=== PATIENT | female | born 1935 | race African-American/Black ===

== ENCOUNTER 2022-03-26 16:41 | Inpatient (IN) | payer MEDICARE, MEDICAID ==
[~2022-03-26] VITALS: Ht 162.6 cm; Wt 66.7 kg
[2022-03-26] MEDS ORDERED: SODIUM CHLORIDE 0.9% 1000ML BAG (SEPSIS BOLUS) IV ONE (17:00)
[2022-03-26] MEDS ORDERED: CEFTRIAXONE 1 G PREMIX 50 ML IV ONE (17:15)
[2022-03-26] MEDS ORDERED: ACETAMINOPHEN 650MG SUPP PR ONE (17:15)
[2022-03-26 17:27] LABS: BASOPHILS % 0.8 % (0.0-2.0); EOSINOPHILS % 0.4 % (0.0-5.0); HEMATOCRIT. 29.3 % (36.0-48.0); HEMOGLOBIN. 9.3 g/dL (12.0-16.0); LYMPHOCYTES % 10.7 % (20.0-50.0); MEAN CORPUSCULAR HEMOGLOBIN 25.6 pg (28.0-32.0); MEAN CORPUSCULAR VOLUME 80.2 fL (81.0-99.0); MEAN PLATELET VOLUME 9.4 fl (7.4-10.4); MONOCYTES % 3.8 % (2.0-8.0); NEUTROPHILS % 84.3 % (40.0-76.0); PLATELET 260 x1000/uL (130-400); RED BLOOD CELL COUNT 3.66 mill/uL (4.2-5.4); RED CELL DISTRIBUTION WIDTH 16.3 % (11.6-14.6)
[2022-03-26 17:41] LABS: CHLORIDE 103 mEq/L (98-107)
[2022-03-26 18:07] LABS: BG BASE EXCESS -1.7 mmol/L (-2.0-2.0); BG CARBOXYHEMOGLOBIN 0.3 % (0.5-1.5); BG DEOXYHEMOGLOBIN 3.2 % (0.0-5.0); BG FRACTION INSPIRED OXYGEN 28; BG HCO3 ACT 21.7 mmol/L (22.0-26.0); BG METHEMOGLOBIN 0.5 % (0.0-1.5); BG OXYGEN SATURATION 96.8 % (92.0-98.5); BG PCO2 31.7 mmHg (35.0-45.0); BG PH 7.454 (7.350-7.450); BG PO2 97.2 mmHg (75.0-100.0); BG SAMPLE SITE RIGHT BRACHIAL; BG TOTAL HEMOGLOBIN 9.1 g/dL (12.0-18.0); BG VENT MODE NASAL CANNULA
[2022-03-26 18:23] LABS: CLARITY URINE CLEAR (CLEAR); COLOR URINE YELLOW (YELLOW); KETONES URINE TRACE (NEGATIVE); LEUKOCYTE ESTERASE URINE TRACE (NEGATIVE); NITRITE URINE NEGATIVE (NEGATIVE); OCCULT BLOOD URINE 1+ (NEGATIVE); PROTEIN URINE 1+ (NEGATIVE); SPECIFIC GRAVITY URINE 1.017 (1.005-1.030)
[2022-03-26] MEDS ORDERED: DOXYCYCLINE HYCLATE 100 MG/VIAL IV ONE (19:15)
[2022-03-26] MEDS ORDERED: DOXYCYCLINE 100MG in DEXTROSE 5% WATER 100ML IV NR (19:30)
[2022-03-27 09:05] VITALS: BP 115/89
[2022-03-27 09:22] VITALS: BP 115/89
[2022-03-27] MEDS ORDERED: ONDANSETRON HCL 4MG/2ML INJ IV PRN (09:30)
[2022-03-27 12:00] VITALS: BP 114/55
[2022-03-27] MEDS: AZITHROMYCIN 500 MG in DEXT 5% WATER 250 ML IV SCH (14:12)
[2022-03-27 15:48] VITALS: BP 125/59
[2022-03-27] MEDS ORDERED: CEFTRIAXONE 1,000 MG in DEXTROSE 5% WATER 50 ML IV SCH (18:00)
[2022-03-27 20:00] VITALS: BP 133/64
[2022-03-28] VITALS: BP 140/79
[2022-03-28] MEDS: AZITHROMYCIN 500 MG in DEXT 5% WATER 250 ML IV SCH (09:00)
[2022-03-28 11:35] VITALS: BP 138/72
[2022-03-28] MEDS ORDERED: HALOPERIDOL LACTATE 5MG/ML VIAL IM PRN (13:00)
[2022-03-28] MEDS ORDERED: LORAZEPAM 2MG/ML CPJ IM PRN (13:00)
[2022-03-28] MEDS ORDERED: LEVOFLOXACIN 500MG TABLET PO SCH (13:45)
[2022-03-28 15:43] VITALS: BP 145/80
[2022-03-28 15:45] VITALS: BP 145/80
[2022-03-28] MEDS ORDERED: LEVO250T43 MT (16:03)
== END 2022-03-28 16:37 | disposition home or self-care (01) | DRG 871 ==
LOC: ER 16:41 → MICUSO 19:14 → EDBEDREQ 19:29 → EDBEDREQTM 19:29 → EDBEDREQSVC 19:29 → 6WST 03-27 09:07
PROVIDERS: ADMIT Internal Medicine; ATTEND Internal Medicine Pulmonary Disease
DX: A41.9 Sepsis, unspecified organism (principal); G93.41 Metabolic encephalopathy; J96.01 Acute respiratory failure with hypoxia; J18.9 Pneumonia, unspecified organism; N39.0 Urinary tract infection, site not specified; E11.9 Type 2 diabetes mellitus without complications; I10 Essential (primary) hypertension; D64.9 Anemia, unspecified; Z20.822 Contact with and (suspected) exposure to COVID-19
CPT/HCPCS: 36415; 36600; 71045; 80053; 81003; 82375; 82805; 83036; 83605; 83880; 84145; 85025; 87426; 97162; 99291; J0456; J0696; J3490; J7030; J7060